=== PATIENT | female | born 1970 | race Hispanic/Latino ===

== ENCOUNTER 2017-08-15 19:22 | Emergency (ER) | payer MEDICAID | END 2017-08-15 20:03 | disposition home or self-care (01) | LOC: EDH 19:22 | DX: L02.211 Cutaneous abscess of abdominal wall (principal); E78.5 Hyperlipidemia, unspecified; I10 Essential (primary) hypertension; E11.9 Type 2 diabetes mellitus without complications; Z90.710 Acquired absence of both cervix and uterus; Z79.4 Long term (current) use of insulin; Z98.890 Other specified postprocedural states | CPT/HCPCS: 10060 ==

== ENCOUNTER → 2018-01-02 | Outpatient (CLI) | payer MEDICAID | END | disposition home or self-care (01) | LOC: SHCH 11:04 | PROVIDERS: ATTEND Internal Medicine Cardiovascular Disease | DX: R94.31 Abnormal electrocardiogram [ECG] [EKG] (principal); R06.09 Other forms of dyspnea; R60.9 Edema, unspecified | CPT/HCPCS: 93306 ==

== ENCOUNTER 2018-03-29 09:37 | Observation (INO) | payer MEDICAID ==
[~2018-03-29] VITALS: Ht 167.6 cm; Wt 89.1 kg
[2018-03-29] MEDS ORDERED: ASPIRIN 325 MG TABLET ONE (10:25)
[2018-03-29 10:35] LABS: APPEARANCE,URINE Clear (CLEAR); BILIRUBIN,URINE Negative (NEGATIVE); COLOR,URINE Yellow (YELLOW); GLUCOSE, URINE (UA) >=1000 mg/dL (NEGATIVE); KETONES,URINE Negative (NEGATIVE); LEUKOCYTE ESTERASE ,URINE Negative (NEGATIVE); NITRATE,URINE Negative (NEGATIVE); OCCULT BLOOD,URINE Nonhemolyzed Trace (NEGATIVE); PH,URINE 6.5 (5.0-8.0); PROTEIN,URINE POS 2+ (NEGATIVE); UROBILINOGEN,URINE 0.2 mg/dL (0.2-1.0)
[2018-03-29 10:36] LABS: BASOPHILS % (AUTO) 0.8 % (0.0-5.0); EOSINOPHILS % (AUTO) 1.6 % (0.0-8.0); HEMATOCRIT 45.9 % (36-48); LYMPHOCYTES % (AUTO) 30.1 % (21.0-51.0); MEAN CORPUSCULAR HEMOGLOBIN 28.8 pg (27.0-33.0); MEAN CORPUSCULAR HGB CONC 34.3 g/dL (32.0-36.0); MEAN CORPUSCULAR VOLUME 84.1 fL (79-99); MONOCYTES % (AUTO) 5.2 % (3.0-13.0); NEUTROPHILS % (AUTO) 62.3 % (40.0-77.0); NUCLEATED RED BLOOD CELLS 0.3 % (0.0-0.19); PLATELET COUNT (AUTO) 301 K/uL (130-400); RED BLOOD CELL COUNT(AUTO) 5.46 MIL/uL (4.00-5.50); RED CELL DISTRIBUTION WIDTH 12.7 % (11.0-15.5); WHITE BLOOD COUNT (AUTO) 5.6 K/uL (4.8-10.8)
[2018-03-29 10:42] LABS: HCG,QUAL RESULT NEGATIVE (NEGATIVE)
[2018-03-29 10:43] LABS: AMPHET/METH SCREEN,URINE NEGATIVE (NEGATIVE); BARBITURATE SCREEN, URINE NEGATIVE (NEGATIVE); BENZODIAZEPINES SCREEN,URINE NEGATIVE (NEGATIVE); CANNABINOID SCREEN,URINE NEGATIVE (NEGATIVE); COCAINE SCREEN,URINE NEGATIVE (NEGATIVE); OPIATE SCREEN,URINE NEGATIVE (NEGATIVE); PHENCYCLIDINE SCREEN,URINE NEGATIVE (NEGATIVE)
[2018-03-29 10:45] LABS: CREATININE 0.7 mg/dL (0.5-1.5); POTASSIUM 3.4 mmol/L (3.5-5.1)
[2018-03-29 10:49] LABS: INR 0.84 (0.85-1.15); PARTIAL THROMBOPLASTIN TIME 26.4 SEC (26.3-35.5); PROTHROMBIN TIME 8.9 SEC (9.6-11.6)
[2018-03-29 10:50] LABS: ALBUMIN 3.8 g/dL (3.5-5.0); BILIRUBIN,TOTAL 0.4 mg/dL (0.2-1.0); TOTAL PROTEIN, SERUM 8.4 g/dL (6.0-8.3)
[2018-03-29 10:54] LABS: BACTERIA,URINE None Seen /HPF (None Seen); RBC,URINE 0-1 /HPF (0-1); SQUAMOUS EPITHELIAL CELL,UR Rare /HPF (0-2); WBC,URINE None Seen /HPF (0-1)
[2018-03-29 11:10] LABS: B-TYPE NATRIURETIC PEPTIDE 35 pg/mL (0-100)
[2018-03-29] MEDS ORDERED: NITROGLYCERIN 0.4 MG SL TAB SL PRN (12:15)
[2018-03-29] MEDS ORDERED: ACETAMINOPHEN EXTRA STRENGTH 500 MG TABLET ONE (12:53)
[2018-03-29] MEDS ORDERED: NITROGLYCERIN 1GM/1 INCH PACKET TD ONE (12:53)
--- NOTE | 2018-03-29 15:00 | NUR ---
PT ARRIVAL UPDATE DR. DEL TORO NOTIFIED ABOUT Pt ARRIVAL AND PRESENTING SYMPTOMS AT THIS TIME, MD PENDING TO COME SEE Pt. NO NEW ORDERS.
[2018-03-29 16:00] VITALS: BP 167/81
[2018-03-29 16:18] LABS: CREATINE KINASE, TOTAL 57 U/L (21-232); MYOGLOBIN 25 ng/mL (10-92); TROPONIN I < 0.04 ng/mL (0.00-0.06)
[2018-03-29] MEDS: INSULIN R PO SS1 SQ SCH ×2 (19:16→22:04)
[2018-03-29] MEDS ORDERED: TRAMADOL /APAP 37.5MG/325MG TAB PO PRN (20:00)
[2018-03-29 21:12] VITALS: BP 180/85
[2018-03-29] MEDS ORDERED: AMLODIPINE BESYLATE 5 MG TAB PO ONE (21:57)
[2018-03-29] MEDS: AMLODIPINE BESYLATE 5 MG TAB PO SCH (22:00)
[2018-03-29 23:43] VITALS: BP 159/76
[2018-03-30] VITALS (9 sets, daily range): BP systolic 140–184; BP diastolic 72–99
[2018-03-30] MEDS: INSULIN R PO SS1 SQ SCH ×4 (06:15→20:29)
[2018-03-30] MEDS ORDERED: REGADENOSON 0.4 MG/5 ML PF SYG IVP SCH (08:30)
[2018-03-30] MEDS: METOPROLOL TARTRATE 25 MG TAB PO SCH ×2 (10:50→20:27)
[2018-03-30] MEDS: PANTOPRAZOLE SODIUM 40 MG TABLET.DR PO SCH (12:31)
[2018-03-30] MEDS: ASPIRIN 325 MG TABLET PO SCH (12:31)
[2018-03-30] MEDS ORDERED: ONDANSETRON HCL 4 MG/2 ML VIAL ONE (21:20)
[2018-03-30] MEDS: AMLODIPINE BESYLATE 5 MG TAB PO SCH (21:23)
[2018-03-31 03:50] VITALS: BP 144/74
[2018-03-31] MEDS: TRAMADOL /APAP 37.5MG/325MG TAB PO PRN ×2 (05:45→22:15)
[2018-03-31] MEDS: INSULIN R PO SS1 SQ SCH ×4 (06:26→22:09)
[2018-03-31 07:00] VITALS: BP 154/75
[2018-03-31] MEDS: AMLODIPINE BESYLATE 5 MG TAB PO SCH (08:13)
[2018-03-31] MEDS: METOPROLOL TARTRATE 25 MG TAB PO SCH ×2 (08:13→22:14)
[2018-03-31] MEDS: ASPIRIN 325 MG TABLET PO SCH (08:13)
[2018-03-31] MEDS: PANTOPRAZOLE SODIUM 40 MG TABLET.DR PO SCH (08:13)
[2018-03-31 11:00] VITALS: BP 162/85
[2018-03-31] MEDS: ONDANSETRON HCL MDV 20ML 2 MG/ML VIAL IVP PRN ×2 (14:51→22:15)
--- NOTE | 2018-03-31 15:33 | NUR ---
cm note pt resides with spouse, independent and active at home. no dme. dc plan is back to home. no dc needs. Addendum: 03/31/18 at 1534 by DELMI JACKSON CM Amended: Links added.
[2018-03-31 16:00] VITALS: BP 180/79
[2018-03-31] MEDS: CLONIDINE HCL 0.1 MG TABLET PO PRN (16:51)
[2018-03-31 20:00] VITALS: BP 168/82
[2018-04-01 00:06] VITALS: BP 144/74
[2018-04-01 04:00] VITALS: BP 132/71
[2018-04-01] MEDS: INSULIN R PO SS1 SQ SCH ×3 (06:31→17:28)
[2018-04-01 08:00] VITALS: BP 143/76
[2018-04-01] MEDS ORDERED: LISI-613 PO (10:01)
[2018-04-01] MEDS ORDERED: INSU100C6 SQ (10:05)
[2018-04-01] MEDS ORDERED: INSU100V12 SQ (10:05)
[2018-04-01] MEDS: PANTOPRAZOLE SODIUM 40 MG TABLET.DR PO SCH (10:18)
[2018-04-01] MEDS: ASPIRIN 325 MG TABLET PO SCH (10:18)
[2018-04-01] MEDS: METOPROLOL TARTRATE 25 MG TAB PO SCH (10:19)
[2018-04-01] MEDS: AMLODIPINE BESYLATE 5 MG TAB PO SCH (10:19)
[2018-04-01 11:00] VITALS: BP 149/74
[2018-04-01] MEDS: CLONIDINE HCL 0.1 MG TABLET PO PRN (13:49)
--- NOTE | 2018-04-01 13:49 | NUR ---
c/o headache asked to have bp checked. ua=918/75 hr=65. clonidine given as per prn orders. will continue to monitor.
[2018-04-01 16:00] VITALS: BP 150/75
--- NOTE | 2018-04-01 19:45 | NUR ---
CM NOTE cm spoke to Dr. Moss regarding pending discharge. CM reported last v/s recorded at 1600. Received orders for discharge. States new prescription in chart with additional bp meds. CM updated nursing.
[2018-04-01 20:00] VITALS: BP 148/77
--- NOTE | 2018-04-01 20:51 | NUR ---
Discharge note: Pt. fully awake and responsive. Reviewed discharge instruction to patient. Pt. verbalized understanding. IV site to LAC #20g terminated with cath intact. Held for 2-3 min. No swelling /bleeding or redness noted. Telemetry discontinued. Discharged via w/c with prescriptions and instructions. Left hospital with mother to home. No apparent distress or discomfort noted.
== END 2018-04-01 20:55 | disposition home or self-care (01) ==
LOC: EDH 09:37 → EDHIP 09:38 → 3CH 14:51
PROVIDERS: ADMIT Internal Medicine; ATTEND Internal Medicine
DX: R07.89 Other chest pain (principal); E11.65 Type 2 diabetes mellitus with hyperglycemia; E78.5 Hyperlipidemia, unspecified; I10 Essential (primary) hypertension; L03.039 Cellulitis of unspecified toe; Z79.82 Long term (current) use of aspirin; Z91.19 Patient's noncompliance with other medical treatment and regimen; Z91.14 Patient's other noncompliance with medication regimen; Z90.710 Acquired absence of both cervix and uterus; Z23 Encounter for immunization
CPT/HCPCS: 36415; 71045; 78452; 80053; 80305; 81001; 81025; 82550 ×2; 82948 ×15; 83874; 83880; 84484 ×2; 85025; 85610; 85730; 93005 ×2; 93017; 96372 ×4; 96374; 96376; 99284; A9500 ×2; G0008; G0378 ×83; J1815 ×7; J2405; J2785; Q2035

== ENCOUNTER 2019-01-02 16:14 | Emergency (ER) | payer MEDICAID ==
[~2019-01-02 16:14] MED LIST: INSU100C6 SQ; INSU100V12 SQ; LISI-613 PO
[2019-01-02 16:53] LABS: CREATININE 0.9 mg/dL (0.5-1.5); POTASSIUM 3.9 mmol/L (3.5-5.1)
[2019-01-02 17:04] LABS: BILIRUBIN,TOTAL 0.3 mg/dL (0.2-1.0); TOTAL PROTEIN, SERUM 7.5 g/dL (6.0-8.3)
[2019-01-02] MEDS ORDERED: ACETAMINOPHEN EXTRA STRENGTH 500 MG TABLET ONE (18:41)
[2019-01-02] MEDS ORDERED: ONDANSETRON ODT 4 MG TAB ONE (18:42)
[2019-01-02 18:48] LABS: BASOPHILS % (AUTO) 0.7 % (0.0-5.0); EOSINOPHILS % (AUTO) 1.8 % (0.0-8.0); HEMATOCRIT 31.5 % (36-48); LYMPHOCYTES % (AUTO) 9.6 % (21.0-51.0); MEAN CORPUSCULAR HEMOGLOBIN 30.1 pg (27.0-33.0); MEAN CORPUSCULAR HGB CONC 33.3 g/dL (32.0-36.0); MEAN CORPUSCULAR VOLUME 90.4 fL (79-99); MONOCYTES % (AUTO) 8.6 % (3.0-13.0); NEUTROPHILS % (AUTO) 79.3 % (40.0-77.0); NUCLEATED RED BLOOD CELLS 0.1 % (0.0-0.19); PLATELET COUNT (AUTO) 256 K/uL (130-400); RED BLOOD CELL COUNT(AUTO) 3.49 MIL/uL (4.00-5.50); RED CELL DISTRIBUTION WIDTH 15.7 % (11.0-15.5); WHITE BLOOD COUNT (AUTO) 8.9 K/uL (4.8-10.8)
[2019-01-02 19:43] LABS: APPEARANCE,URINE Clear (CLEAR); BILIRUBIN,URINE Negative (NEGATIVE); COLOR,URINE Yellow (YELLOW); GLUCOSE, URINE (UA) >=1000 mg/dL (NEGATIVE); KETONES,URINE Negative (NEGATIVE); LEUKOCYTE ESTERASE ,URINE Negative (NEGATIVE); NITRATE,URINE Negative (NEGATIVE); OCCULT BLOOD,URINE Trace (NEGATIVE); PH,URINE 5.5 (5.0-8.0); PROTEIN,URINE POS 2+ mg/dL (NEGATIVE); UROBILINOGEN,URINE 0.2 mg/dL (0.2-1.0)
[2019-01-02 19:50] LABS: BACTERIA,URINE Rare /HPF (None Seen); MUCUS,URINE Rare LPF (None Seen); RBC,URINE 0-1 /HPF (0-1); SQUAMOUS EPITHELIAL CELL,UR Few /HPF (0-2); WBC,URINE 0-1 /HPF (0-1)
[2019-01-02] MEDS ORDERED: LABETALOL HCL 5 MG/ML 20ML VIAL IV ONE (20:19)
[2019-01-02] MEDS ORDERED: SODIUM CHLORIDE 0.9% 1000ML 1,000 ML IV ONE (20:19)
[2019-01-02] MEDS ORDERED: IOHEXOL-350 75 ML VIAL IV ONE (20:25)
== END 2019-01-02 23:35 | disposition home or self-care (01) ==
LOC: EDH 16:14
DX: I10 Essential (primary) hypertension (principal); R06.00 Dyspnea, unspecified; R42 Dizziness and giddiness; R51 Headache; R07.9 Chest pain, unspecified; E11.9 Type 2 diabetes mellitus without complications; E78.5 Hyperlipidemia, unspecified; Z79.4 Long term (current) use of insulin; Z88.8 Allergy status to other drugs, medicaments and biological substances; Z90.710 Acquired absence of both cervix and uterus
CPT/HCPCS: 36415; 71046; 71275; 80053; 81001; 82550; 84484; 85025; 85378; 87804 ×2; 93005; 93970; 96361; 96374; 99285; J3490; J7030; Q9967

== ENCOUNTER 2020-11-04 10:55 | Inpatient (IN) | payer MEDICAID ==
[~2020-11-04] VITALS: Ht 167.6 cm; Wt 100.0 kg
[~2020-11-04 10:55] MED LIST changes: -LISI-613 PO; +LISI20TA24 PO
[2020-11-04 12:18] LABS: HEMATOCRIT 34.6 % (36-48); MEAN CORPUSCULAR HEMOGLOBIN 28.4 pg (27.0-33.0); MEAN CORPUSCULAR HGB CONC 32.4 g/dL (32.0-36.0); MEAN CORPUSCULAR VOLUME 87.8 fL (79-99); RED BLOOD CELL COUNT(AUTO) 3.94 MIL/uL (4.00-5.50); RED CELL DISTRIBUTION WIDTH 12.3 % (11.0-15.5); WHITE BLOOD COUNT (AUTO) 8.5 K/uL (4.8-10.8)
[2020-11-04] MEDS ORDERED: MORPHINE 2 MG SYG ONE (12:27)
[2020-11-04] MEDS ORDERED: ONDANSETRON 4MG INJ ONE ×2 (12:27→17:09)
[2020-11-04 12:37] VITALS: BP 165/80
[2020-11-04] MEDS ORDERED: AEC81 PO (12:54)
[2020-11-04] MEDS ORDERED: SITA100T12 PO (12:54)
[2020-11-04] MEDS ORDERED: CLON0.1T PO (12:54)
[2020-11-04] MEDS ORDERED: HYDR25TA PO (12:54)
[2020-11-04] MEDS ORDERED: SPIR50TA5 PO (12:54)
[2020-11-04] MEDS ORDERED: ATOR40TA69 PO (12:54)
[2020-11-04] MEDS ORDERED: LOSA100T58 PO (12:54)
[2020-11-04] MEDS ORDERED: ONDANSETRON 4MG INJ IVP ONE (13:00)
[2020-11-04] MEDS ORDERED: MORPHINE 2 MG SYG IVP ONE (13:00)
[2020-11-04 13:08] LABS: CREATININE 2.7 mg/dL (0.5-1.5)
[2020-11-04 13:42] LABS: POTASSIUM 6.7 mmol/L (3.5-5.1)
[2020-11-04] MEDS ORDERED: CALCIUM GLUC 1GM VIAL IV ONE (14:14)
[2020-11-04] MEDS ORDERED: DEXTROSE 50%-WATER 50 ML DISP.SYRIN IV ONE ×3 (14:15→21:30)
[2020-11-04] MEDS ORDERED: INSULIN HUMULIN R 100 UNIT/ML 3ML ONE (14:16)
[2020-11-04] MEDS ORDERED: INSULIN HUMULIN R 100 UNIT/ML 3ML IV ONE ×2 (14:30→21:30)
[2020-11-04] MEDS ORDERED: CALCIUM GLUC 1GM VIAL 1 GM in 0.9%NACL 100ML 100 ML IV SCH (14:30)
[2020-11-04] MEDS ORDERED: GLUCAGON 1MG KIT 1 MG ML IM PRN (14:30)
[2020-11-04] MEDS ORDERED: DEXTROSE 50%-WATER 50 ML DISP.SYRIN IV PRN (14:30)
[2020-11-04] MEDS ORDERED: METOPROLOL TARTRATE 1 MG/ML 5ML VIAL IV ONE (15:00)
[2020-11-04] MEDS ORDERED: KAYEXALATE 15GM/60ML PO ONE (15:00)
[2020-11-04 15:14] VITALS: BP 159/49
[2020-11-04] MEDS: 0.9%NACL 1000ML 1,000 ML IV SCH (15:58)
[2020-11-04] MEDS: HYDROMORPHONE 0.5 MG SYG (0.5MG/0.5ML) IVP PRN (15:59)
[2020-11-04] MEDS ORDERED: AMLODIPINE 5 MG TAB PO ONE (16:30)
[2020-11-04] MEDS: INSULIN HUMULIN R 100 UNIT/ML 3ML SQ SCH ×2 (16:30→21:00)
[2020-11-04 17:17] LABS: APPEARANCE,URINE Clear (CLEAR); BILIRUBIN,URINE Negative (NEGATIVE); COLOR,URINE Yellow (YELLOW); GLUCOSE, URINE (UA) 500 mg/dL (NEGATIVE); KETONES,URINE Negative (NEGATIVE); LEUKOCYTE ESTERASE ,URINE Negative (NEGATIVE); NITRATE,URINE Negative (NEGATIVE); OCCULT BLOOD,URINE Negative (NEGATIVE); PROTEIN,URINE Negative (NEGATIVE); UROBILINOGEN,URINE 0.2 mg/dL (0.2-1.0)
[2020-11-04 17:24] LABS: BACTERIA,URINE Rare /HPF (None Seen); RBC,URINE 0-1 /HPF (0-1); SQUAMOUS EPITHELIAL CELL,UR Few /HPF (0-2); WBC,URINE 0-1 /HPF (0-1)
[2020-11-04] MEDS: CEFTRIAXONE 1G VIAL IVP SCH (17:42)
[2020-11-04] MEDS ORDERED: ACETAMINOPHEN 325 MG TAB PO PRN (18:30)
[2020-11-04 18:56] LABS: HEMOGLOBIN A1C 9.5 % (4.0-6.0)
[2020-11-04] MEDS: FAMOTIDINE 20MG VIAL IV SCH (19:42)
[2020-11-04 20:16] VITALS: BP 144/54
[2020-11-04] MEDS ORDERED: IPRATROPIUM/ALBUTEROL SULFATE 3 ML SOLUTION IH ONE (21:30)
[2020-11-04] MEDS ORDERED: NA ZIRCON CYCLOSIL(LOKELMA 10GM) PO SCH (21:30)
[2020-11-04] MEDS ORDERED: SODIUM BICARB 50MEQ 50ML VIAL IV SCH (21:30)
[2020-11-05] VITALS (7 sets, daily range): BP systolic 106–196; BP diastolic 36–68
[2020-11-05] MEDS ORDERED: ASCO100031 PO (01:20)
[2020-11-05] MEDS ORDERED: MULT-1247 PO (01:20)
[2020-11-05] MEDS ORDERED: NPH,100V SQ (01:20)
[2020-11-05] MEDS ORDERED: FLUC150T6 PO (01:20)
[2020-11-05] MEDS ORDERED: VITAMIN D PO (01:20)
[2020-11-05] MEDS ORDERED: CINN1CAP2 PO (01:20)
[2020-11-05] MEDS: ACETAMINOPHEN 325 MG TAB PO PRN ×2 (01:32→09:18)
[2020-11-05 05:47] LABS: BASOPHILS % (AUTO) 0.4 % (0.0-5.0); EOSINOPHILS % (AUTO) 1.6 % (0.0-8.0); HEMATOCRIT 28.7 % (36-48); LYMPHOCYTES % (AUTO) 34.7 % (21.0-51.0); MEAN CORPUSCULAR HEMOGLOBIN 28.1 pg (27.0-33.0); MEAN CORPUSCULAR HGB CONC 32.4 g/dL (32.0-36.0); MEAN CORPUSCULAR VOLUME 86.7 fL (79-99); MONOCYTES % (AUTO) 5.9 % (3.0-13.0); NEUTROPHILS % (AUTO) 57.1 % (40.0-77.0); PLATELET COUNT (AUTO) 305 K/uL (130-400); RED BLOOD CELL COUNT(AUTO) 3.31 MIL/uL (4.00-5.50); RED CELL DISTRIBUTION WIDTH 12.5 % (11.0-15.5); WHITE BLOOD COUNT (AUTO) 7.6 K/uL (4.8-10.8)
[2020-11-05] MEDS: INSULIN HUMULIN R 100 UNIT/ML 3ML SQ SCH ×5 (06:03→20:24)
[2020-11-05 06:11] LABS: ALBUMIN 3.1 g/dL (3.5-5.0); BILIRUBIN,TOTAL 0.2 mg/dL (0.2-1.0); CREATININE 2.2 mg/dL (0.5-1.5); MAGNESIUM 2.5 mg/dL (1.80-2.40); PHOSPHORUS 4.2 mg/dL (2.5-4.9); TOTAL PROTEIN, SERUM 7.3 g/dL (6.0-8.3); URIC ACID 5.9 mg/dL (2.6-7.2)
[2020-11-05 06:14] LABS: POTASSIUM 6.8 mmol/L (3.5-5.1)
[2020-11-05] MEDS ORDERED: INSULIN HUMULIN R 100 UNIT/ML 3ML IV SCH (08:30)
[2020-11-05] MEDS ORDERED: DEXTROSE 50%-WATER 50 ML DISP.SYRIN IV SCH (08:30)
[2020-11-05] MEDS ORDERED: PHARMACY COMMUNICATION MISC SCH (08:30)
[2020-11-05] MEDS ORDERED: SODIUM BICARB 50MEQ 50ML VIAL IV SCH (08:30)
[2020-11-05] MEDS ORDERED: CALCIUM GLUC 1GM VIAL IV SCH (09:00)
[2020-11-05] MEDS ORDERED: NA ZIRCON CYCLOSIL(LOKELMA 10GM) PO NR (09:00)
[2020-11-05] MEDS ORDERED: LOSARTAN 100 MG TABLET PO SCH (09:00)
[2020-11-05] MEDS ORDERED: CALCIUM GLUC 1GM VIAL 1 GM in 0.9%NACL 100ML 100 ML IV SCH (09:00)
[2020-11-05] MEDS: FAMOTIDINE 20MG VIAL IV SCH (09:15)
[2020-11-05] MEDS: ATORVASTATIN 40 MG TABLET PO SCH (09:16)
[2020-11-05] MEDS: AMLODIPINE 5 MG TAB PO SCH (09:17)
[2020-11-05] MEDS: Vitamin B Complex/Vit C/Folic Acid PO SCH (09:21)
[2020-11-05] MEDS: ASPIRIN 81 MG EC TAB PO SCH (09:21)
[2020-11-05] MEDS ORDERED: ONDANSETRON 4MG INJ IVP PRN (10:00)
[2020-11-05] MEDS: 0.9%NACL 1000ML 1,000 ML IV SCH (10:52)
[2020-11-05] MEDS ORDERED: INSU500I SQ (13:09)
[2020-11-05] MEDS: CEFTRIAXONE 1G VIAL IVP SCH (17:03)
[2020-11-05] MEDS: HYDROMORPHONE 0.5 MG SYG (0.5MG/0.5ML) IVP PRN (17:03)
[2020-11-05] MEDS: INSULIN GLARGINE 100 UNITS/ML 10 ML VIAL SQ SCH (17:20)
[2020-11-05] MEDS ORDERED: NA ZIRCON CYCLOSIL(LOKELMA 10GM) PO SCH (17:30)
[2020-11-05] MEDS: CLONIDINE HCL 0.1 MG TABLET PO SCH (17:34)
[2020-11-06] MEDS ORDERED: HYDRALAZINE 20MG/ML VIAL IV SCH ×2 (00:05→00:30)
[2020-11-06] MEDS ORDERED: HYDRALAZINE 20MG/ML VIAL ONE (00:11)
[2020-11-06] MEDS: ACETAMINOPHEN 325 MG TAB PO PRN (00:16)
[2020-11-06 03:24] VITALS: BP 148/54
[2020-11-06 04:32] LABS: HEMATOCRIT 28.8 % (36-48); MEAN CORPUSCULAR HEMOGLOBIN 28.3 pg (27.0-33.0); MEAN CORPUSCULAR VOLUME 85.7 fL (79-99); PLATELET COUNT (AUTO) 277 K/uL (130-400); RED BLOOD CELL COUNT(AUTO) 3.36 MIL/uL (4.00-5.50); RED CELL DISTRIBUTION WIDTH 12.3 % (11.0-15.5); WHITE BLOOD COUNT (AUTO) 8.3 K/uL (4.8-10.8)
[2020-11-06 04:49] LABS: ALBUMIN 3.1 g/dL (3.5-5.0); BILIRUBIN,TOTAL 0.2 mg/dL (0.2-1.0); CREATININE 1.6 mg/dL (0.5-1.5); POTASSIUM 4.9 mmol/L (3.5-5.1); TOTAL PROTEIN, SERUM 7.2 g/dL (6.0-8.3)
[2020-11-06 05:26] LABS: BASOPHILS % (MANUAL) 1 % (0-2); EOSINOPHILS % (MANUAL) 3 % (1-6); LYMPHOCYTES % (MANUAL) 24 % (22-44); MAN.DIFF COMMENT-IMPRESSION MANUAL DIFFERENTIAL; MONOCYTES % (MANUAL) 4 % (2-9); SEGMENTED NEUTROPHILS % 68 % (40-70)
[2020-11-06] MEDS: INSULIN HUMULIN R 100 UNIT/ML 3ML SQ SCH ×7 (06:22→20:00)
[2020-11-06] MEDS: 0.9%NACL 1000ML 1,000 ML IV SCH (06:46)
[2020-11-06 08:00] VITALS: BP 150/79
[2020-11-06] MEDS: ATORVASTATIN 40 MG TABLET PO SCH (10:51)
[2020-11-06] MEDS: Vitamin B Complex/Vit C/Folic Acid PO SCH (10:51)
[2020-11-06] MEDS: FAMOTIDINE 20MG VIAL IV SCH (10:51)
[2020-11-06] MEDS: AMLODIPINE 5 MG TAB PO SCH (10:51)
[2020-11-06] MEDS: ASPIRIN 81 MG EC TAB PO SCH (10:51)
[2020-11-06 12:00] VITALS: BP 158/69
[2020-11-06 16:00] VITALS: BP 176/69
[2020-11-06] MEDS ORDERED: PRASUGREL HCL 10 MG TABLET PO SCH (16:30)
[2020-11-06] MEDS: CEFTRIAXONE 1G VIAL IVP SCH (16:38)
[2020-11-06] MEDS: INSULIN GLARGINE 100 UNITS/ML 10 ML VIAL SQ SCH (16:55)
[2020-11-06] MEDS: CLONIDINE HCL 0.1 MG TABLET PO SCH (19:47)
[2020-11-06 19:57] VITALS: BP 181/78
[2020-11-06 23:32] VITALS: BP 132/61
[2020-11-07] VITALS (14 sets, daily range): BP systolic 105–169; BP diastolic 43–81
[2020-11-07] MEDS: 0.9%NACL 1000ML 1,000 ML IV SCH ×2 (02:50→15:15)
[2020-11-07 04:01] LABS: HEMATOCRIT 29.9 % (36-48); MEAN CORPUSCULAR HEMOGLOBIN 28.3 pg (27.0-33.0); MEAN CORPUSCULAR HGB CONC 32.8 g/dL (32.0-36.0); MEAN CORPUSCULAR VOLUME 86.4 fL (79-99); PLATELET COUNT (AUTO) 286 K/uL (130-400); RED BLOOD CELL COUNT(AUTO) 3.46 MIL/uL (4.00-5.50); RED CELL DISTRIBUTION WIDTH 12.3 % (11.0-15.5); WHITE BLOOD COUNT (AUTO) 6.9 K/uL (4.8-10.8)
[2020-11-07 04:17] LABS: BILIRUBIN,TOTAL 0.2 mg/dL (0.2-1.0); CREATININE 1.4 mg/dL (0.5-1.5); POTASSIUM 4.9 mmol/L (3.5-5.1); TOTAL PROTEIN, SERUM 7.1 g/dL (6.0-8.3)
[2020-11-07 05:18] LABS: BASOPHILS % (MANUAL) 1 % (0-2); EOSINOPHILS % (MANUAL) 3 % (1-6); LYMPHOCYTES % (MANUAL) 38 % (22-44); MONOCYTES % (MANUAL) 6 % (2-9); SEGMENTED NEUTROPHILS % 52 % (40-70)
[2020-11-07 05:19] LABS: MAN.DIFF COMMENT-IMPRESSION MANUAL DIFFERENTIAL
[2020-11-07 05:20] LABS: PLATELET MORPHOLOGY COMMENT ADEQUATE
[2020-11-07] MEDS: INSULIN HUMULIN R 100 UNIT/ML 3ML SQ SCH ×7 (05:42→20:15)
[2020-11-07] MEDS: ASPIRIN 81 MG EC TAB PO SCH (07:02)
[2020-11-07] MEDS: ATORVASTATIN 40 MG TABLET PO SCH (07:02)
[2020-11-07] MEDS: PRASUGREL HCL 10 MG TABLET PO SCH (07:02)
[2020-11-07] MEDS: Vitamin B Complex/Vit C/Folic Acid PO SCH (07:02)
[2020-11-07 07:53] LABS: INR 0.99 (0.85-1.15); PROTHROMBIN TIME 10.8 SEC (9.6-11.6)
[2020-11-07 07:55] LABS: PARTIAL THROMBOPLASTIN TIME 25.9 SEC (26.3-35.5)
[2020-11-07] MEDS: FAMOTIDINE 20MG VIAL IV SCH (08:17)
[2020-11-07] MEDS: AMLODIPINE 5 MG TAB PO SCH (08:17)
[2020-11-07] MEDS ORDERED: NITROGLYCERIN 2 MG VIAL IV ONE (11:07)
[2020-11-07] MEDS ORDERED: HEPARIN 10,000 UNIT/10ML (1,000 UNIT/ML) VIAL ONE (11:07)
[2020-11-07] MEDS ORDERED: FENTANYL CITRATE PF 50 MCG/1 ML 2ML VIAL ONE (11:08)
[2020-11-07] MEDS ORDERED: LIDOCAINE HCL 400MG/20ML VIAL ONE (11:08)
[2020-11-07] MEDS ORDERED: MIDAZOLAM HCL 1 MG/ML 2ML VIAL ONE (11:08)
[2020-11-07] MEDS ORDERED: IODIXANOL 320 MG/ML 100 ML VIAL ONE (11:08)
[2020-11-07] MEDS ORDERED: 0.9%NACL 1000ML 1,000 ML IV SCH (14:00)
[2020-11-07] MEDS: ACETAMINOPHEN 325 MG TAB PO PRN ×2 (14:33→20:12)
[2020-11-07] MEDS: CEFTRIAXONE 1G VIAL IVP SCH (16:18)
[2020-11-07] MEDS: INSULIN GLARGINE 100 UNITS/ML 10 ML VIAL SQ SCH (16:21)
[2020-11-08 04:08] VITALS: BP 144/63
[2020-11-08 04:17] LABS: HEMATOCRIT 28.5 % (36-48); MEAN CORPUSCULAR HEMOGLOBIN 28.6 pg (27.0-33.0); MEAN CORPUSCULAR VOLUME 86.6 fL (79-99); RED BLOOD CELL COUNT(AUTO) 3.29 MIL/uL (4.00-5.50); WHITE BLOOD COUNT (AUTO) 7.1 K/uL (4.8-10.8)
[2020-11-08 04:54] LABS: CREATININE 1.1 mg/dL (0.5-1.5); POTASSIUM 4.5 mmol/L (3.5-5.1)
[2020-11-08] MEDS: PRASUGREL HCL 10 MG TABLET PO SCH (07:26)
[2020-11-08] MEDS: ATORVASTATIN 40 MG TABLET PO SCH (07:27)
[2020-11-08] MEDS: AMLODIPINE 5 MG TAB PO SCH (07:27)
[2020-11-08] MEDS: Vitamin B Complex/Vit C/Folic Acid PO SCH (07:27)
[2020-11-08] MEDS: ASPIRIN 81 MG EC TAB PO SCH (07:27)
[2020-11-08] MEDS: FAMOTIDINE 20MG VIAL IV SCH (07:28)
[2020-11-08] MEDS: INSULIN HUMULIN R 100 UNIT/ML 3ML SQ SCH ×6 (07:30→18:15)
[2020-11-08 07:50] VITALS: BP 132/67
[2020-11-08] MEDS: ACETAMINOPHEN 325 MG TAB PO PRN (08:10)
[2020-11-08] MEDS ORDERED: PRAS10TA6 PO (08:53)
[2020-11-08 11:27] VITALS: BP 154/77
[2020-11-08] MEDS ORDERED: CEPH500B PO (14:52)
[2020-11-08] MEDS ORDERED: LOSA25TA41 PO (14:52)
[2020-11-08 16:00] VITALS: BP 154/61
[2020-11-08] MEDS: CEFTRIAXONE 1G VIAL IVP SCH (17:30)
[2020-11-08] MEDS: INSULIN GLARGINE 100 UNITS/ML 10 ML VIAL SQ SCH (18:17)
== END 2020-11-08 19:25 | disposition home or self-care (01) | DRG 181 ==
LOC: EDH 10:55 → EDHIP 10:56 → 4DH 11-05 00:45
PROVIDERS: ADMIT Internal Medicine; ATTEND Internal Medicine
PROC: 047 Lower Arteries, Dilation (ICD-10-PCS; principal; 2020-11-07)
DX: E11.51 Type 2 diabetes mellitus with diabetic peripheral angiopathy without gangrene (principal); N17.0 Acute kidney failure with tubular necrosis; E11.22 Type 2 diabetes mellitus with diabetic chronic kidney disease; E11.621 Type 2 diabetes mellitus with foot ulcer; I12.9 Hypertensive chronic kidney disease with stage 1 through stage 4 chronic kidney disease, or unspecified chronic kidney disease; E11.319 Type 2 diabetes mellitus with unspecified diabetic retinopathy without macular edema; E87.5 Hyperkalemia; E87.2 Acidosis; L97.819 Non-pressure chronic ulcer of other part of right lower leg with unspecified severity; E87.1 Hypo-osmolality and hyponatremia; N18.9 Chronic kidney disease, unspecified; D64.9 Anemia, unspecified; M19.90 Unspecified osteoarthritis, unspecified site; E66.01 Morbid (severe) obesity due to excess calories; Z68.35 Body mass index [BMI] 35.0-35.9, adult; E78.00 Pure hypercholesterolemia, unspecified; E78.5 Hyperlipidemia, unspecified; L08.9 Local infection of the skin and subcutaneous tissue, unspecified; L97.519 Non-pressure chronic ulcer of other part of right foot with unspecified severity; Z79.4 Long term (current) use of insulin; Z79.899 Other long term (current) drug therapy; Z90.49 Acquired absence of other specified parts of digestive tract; Z98.891 History of uterine scar from previous surgery; Z90.710 Acquired absence of both cervix and uterus; Z82.49 Family history of ischemic heart disease and other diseases of the circulatory system; I99.8 Other disorder of circulatory system
CPT/HCPCS: 36415; 37230; 73600; 73620; 75710; 76770; 80048; 80053; 80061; 81001; 82550; 82948; 83036; 83735; 83874; 84100; 84132; 84145; 84484; 84550; 85025; 85027; 85610; 85730; 93005; 93926; 94640; 94664; 99156; 99157; C1760; C1769; C1893; C1894; G0378; J0360; J0610; J0696; J1170; J1644; J1815; J2250; J2405; J3010; J3490; J7030; J7070; Q9967

== ENCOUNTER → 2020-11-15 | Outpatient (CLI) | payer MEDICAID ==
[~2020-11-15] MED LIST changes: +AEC81 PO; +ASCO100031 PO; +ATOR40TA69 PO; +CEPH500B PO; +CINN1CAP2 PO; +CLON0.1T PO; +FLUC150T6 PO; -INSU100C6 SQ; -INSU100V12 SQ; +LIDOCAINE HCL 4% LTA SOL 4 ML VIAL TP ONE; -LISI20TA24 PO; +LOSA25TA41 PO; +MULT-1247 PO; +PRAS10TA6 PO; +SITA100T12 PO; +VITAMIN D PO
== END | disposition home or self-care (01) ==
LOC: WHH 10:11
PROVIDERS: ATTEND Family Medicine
DX: S81.801A Unspecified open wound, right lower leg, initial encounter (principal); E11.628 Type 2 diabetes mellitus with other skin complications; I70.203 Unspecified atherosclerosis of native arteries of extremities, bilateral legs; E11.51 Type 2 diabetes mellitus with diabetic peripheral angiopathy without gangrene; E11.22 Type 2 diabetes mellitus with diabetic chronic kidney disease; I12.9 Hypertensive chronic kidney disease with stage 1 through stage 4 chronic kidney disease, or unspecified chronic kidney disease; N18.9 Chronic kidney disease, unspecified; M19.90 Unspecified osteoarthritis, unspecified site; E66.01 Morbid (severe) obesity due to excess calories; E78.5 Hyperlipidemia, unspecified; E78.00 Pure hypercholesterolemia, unspecified; Z68.35 Body mass index [BMI] 35.0-35.9, adult; Z87.891 Personal history of nicotine dependence; Z79.4 Long term (current) use of insulin; Z79.899 Other long term (current) drug therapy; X58.XXXA Exposure to other specified factors, initial encounter; Y93.89 Activity, other specified; Y92.89 Other specified places as the place of occurrence of the external cause; Y99.8 Other external cause status
CPT/HCPCS: 11042; 99215; A4450

== ENCOUNTER → 2020-11-22 | Outpatient (CLI) | payer MEDICAID | END | disposition home or self-care (01) | LOC: WHH 09:57 | PROVIDERS: ATTEND Family Medicine | DX: S81.801D Unspecified open wound, right lower leg, subsequent encounter (principal); E11.628 Type 2 diabetes mellitus with other skin complications; I70.203 Unspecified atherosclerosis of native arteries of extremities, bilateral legs; E11.51 Type 2 diabetes mellitus with diabetic peripheral angiopathy without gangrene; E11.22 Type 2 diabetes mellitus with diabetic chronic kidney disease; I12.9 Hypertensive chronic kidney disease with stage 1 through stage 4 chronic kidney disease, or unspecified chronic kidney disease; N18.9 Chronic kidney disease, unspecified; M19.90 Unspecified osteoarthritis, unspecified site; E66.01 Morbid (severe) obesity due to excess calories; E78.5 Hyperlipidemia, unspecified; E78.00 Pure hypercholesterolemia, unspecified; Z68.35 Body mass index [BMI] 35.0-35.9, adult; Z87.891 Personal history of nicotine dependence; Z79.4 Long term (current) use of insulin; Z79.899 Other long term (current) drug therapy; X58.XXXD Exposure to other specified factors, subsequent encounter | CPT/HCPCS: 11042 ==

== ENCOUNTER → 2020-12-05 | Outpatient (CLI) | payer MEDICAID ==
[~2020-12-05] MED LIST changes: +HONEY 1 APPL/ML TUBE TP ONE
== END | disposition home or self-care (01) ==
LOC: WHH 09:04
PROVIDERS: ATTEND Family Medicine
DX: T81.89XD Other complications of procedures, not elsewhere classified, subsequent encounter (principal); S81.801D Unspecified open wound, right lower leg, subsequent encounter; E11.628 Type 2 diabetes mellitus with other skin complications; E11.622 Type 2 diabetes mellitus with other skin ulcer; L97.212 Non-pressure chronic ulcer of right calf with fat layer exposed; I70.232 Atherosclerosis of native arteries of right leg with ulceration of calf; I70.202 Unspecified atherosclerosis of native arteries of extremities, left leg; E11.51 Type 2 diabetes mellitus with diabetic peripheral angiopathy without gangrene; E11.40 Type 2 diabetes mellitus with diabetic neuropathy, unspecified; E11.22 Type 2 diabetes mellitus with diabetic chronic kidney disease; I12.9 Hypertensive chronic kidney disease with stage 1 through stage 4 chronic kidney disease, or unspecified chronic kidney disease; N18.9 Chronic kidney disease, unspecified; E11.319 Type 2 diabetes mellitus with unspecified diabetic retinopathy without macular edema; M19.90 Unspecified osteoarthritis, unspecified site; E78.00 Pure hypercholesterolemia, unspecified; E66.01 Morbid (severe) obesity due to excess calories; E78.5 Hyperlipidemia, unspecified; E80.0 Hereditary erythropoietic porphyria; Z68.35 Body mass index [BMI] 35.0-35.9, adult; Z90.49 Acquired absence of other specified parts of digestive tract; Z87.891 Personal history of nicotine dependence; Z79.4 Long term (current) use of insulin; Z79.899 Other long term (current) drug therapy; X58.XXXD Exposure to other specified factors, subsequent encounter; Y83.8 Other surgical procedures as the cause of abnormal reaction of the patient, or of later complication, without mention of misadventure at the time of the procedure
CPT/HCPCS: 11042; A4450

== ENCOUNTER → 2021-01-10 | Outpatient (CLI) | payer MEDICAID ==
[~2021-01-10] MED LIST changes: -LIDOCAINE HCL 4% LTA SOL 4 ML VIAL TP ONE
== END | disposition home or self-care (01) ==
LOC: WHH 09:13
PROVIDERS: ATTEND Family Medicine
DX: T81.89XD Other complications of procedures, not elsewhere classified, subsequent encounter (principal); E11.622 Type 2 diabetes mellitus with other skin ulcer; I70.238 Atherosclerosis of native arteries of right leg with ulceration of other part of lower leg; L97.812 Non-pressure chronic ulcer of other part of right lower leg with fat layer exposed; I70.232 Atherosclerosis of native arteries of right leg with ulceration of calf; L97.212 Non-pressure chronic ulcer of right calf with fat layer exposed; S81.801D Unspecified open wound, right lower leg, subsequent encounter; I70.202 Unspecified atherosclerosis of native arteries of extremities, left leg; E11.51 Type 2 diabetes mellitus with diabetic peripheral angiopathy without gangrene; E11.40 Type 2 diabetes mellitus with diabetic neuropathy, unspecified; E11.22 Type 2 diabetes mellitus with diabetic chronic kidney disease; I12.9 Hypertensive chronic kidney disease with stage 1 through stage 4 chronic kidney disease, or unspecified chronic kidney disease; N18.9 Chronic kidney disease, unspecified; E11.319 Type 2 diabetes mellitus with unspecified diabetic retinopathy without macular edema; E78.00 Pure hypercholesterolemia, unspecified; E66.01 Morbid (severe) obesity due to excess calories; M19.90 Unspecified osteoarthritis, unspecified site; E78.5 Hyperlipidemia, unspecified; Z68.35 Body mass index [BMI] 35.0-35.9, adult; Z90.49 Acquired absence of other specified parts of digestive tract; Z87.891 Personal history of nicotine dependence; Z79.4 Long term (current) use of insulin; Z79.899 Other long term (current) drug therapy; X58.XXXD Exposure to other specified factors, subsequent encounter; Y83.8 Other surgical procedures as the cause of abnormal reaction of the patient, or of later complication, without mention of misadventure at the time of the procedure
CPT/HCPCS: 11042; A4450

== ENCOUNTER → 2021-02-06 | Outpatient (CLI) | payer MEDICAID ==
[~2021-02-06] MED LIST changes: -HONEY 1 APPL/ML TUBE TP ONE; +LIDOCAINE HCL 4% LTA SOL 4 ML VIAL TP ONE
== END | disposition home or self-care (01) ==
LOC: WHH 13:24
PROVIDERS: ATTEND Family Medicine
DX: T81.89XD Other complications of procedures, not elsewhere classified, subsequent encounter (principal); E11.622 Type 2 diabetes mellitus with other skin ulcer; I70.238 Atherosclerosis of native arteries of right leg with ulceration of other part of lower leg; L97.812 Non-pressure chronic ulcer of other part of right lower leg with fat layer exposed; I70.232 Atherosclerosis of native arteries of right leg with ulceration of calf; L97.212 Non-pressure chronic ulcer of right calf with fat layer exposed; S81.801D Unspecified open wound, right lower leg, subsequent encounter; I70.202 Unspecified atherosclerosis of native arteries of extremities, left leg; E11.51 Type 2 diabetes mellitus with diabetic peripheral angiopathy without gangrene; E11.40 Type 2 diabetes mellitus with diabetic neuropathy, unspecified; E11.22 Type 2 diabetes mellitus with diabetic chronic kidney disease; I12.9 Hypertensive chronic kidney disease with stage 1 through stage 4 chronic kidney disease, or unspecified chronic kidney disease; N18.9 Chronic kidney disease, unspecified; E11.319 Type 2 diabetes mellitus with unspecified diabetic retinopathy without macular edema; E78.00 Pure hypercholesterolemia, unspecified; E66.01 Morbid (severe) obesity due to excess calories; M19.90 Unspecified osteoarthritis, unspecified site; E78.5 Hyperlipidemia, unspecified; Z68.35 Body mass index [BMI] 35.0-35.9, adult; Z90.49 Acquired absence of other specified parts of digestive tract; Z87.891 Personal history of nicotine dependence; Z79.4 Long term (current) use of insulin; Z79.899 Other long term (current) drug therapy; X58.XXXD Exposure to other specified factors, subsequent encounter; Y83.8 Other surgical procedures as the cause of abnormal reaction of the patient, or of later complication, without mention of misadventure at the time of the procedure
CPT/HCPCS: 11042; A6022

== ENCOUNTER 2022-04-14 15:02 | Emergency (ER) | payer MEDICAID ==
[~2022-04-14] VITALS: Ht 167.6 cm; Wt 98.9 kg
[~2022-04-14 15:02] MED LIST changes: +FLUC150T48 PO; -FLUC150T6 PO; -LIDOCAINE HCL 4% LTA SOL 4 ML VIAL TP ONE
[2022-04-14 15:49] LABS: BASOPHILS % (AUTO) 0.4 % (0.0-5.0); HEMATOCRIT 35.8 % (36-48); LYMPHOCYTES % (AUTO) 29.7 % (21.0-51.0); MEAN CORPUSCULAR HEMOGLOBIN 28.3 pg (27.0-33.0); MEAN CORPUSCULAR HGB CONC 33.8 g/dL (32.0-36.0); MEAN CORPUSCULAR VOLUME 83.6 fL (79-99); MONOCYTES % (AUTO) 4.6 % (3.0-13.0); NEUTROPHILS % (AUTO) 62.8 % (40.0-77.0); PLATELET COUNT (AUTO) 249 K/uL (130-400); RED BLOOD CELL COUNT(AUTO) 4.28 MIL/uL (4.00-5.50); RED CELL DISTRIBUTION WIDTH 12.5 % (11.0-15.5); WHITE BLOOD COUNT (AUTO) 8.6 K/uL (4.8-10.8)
[2022-04-14 16:03] LABS: INR 0.94 (0.85-1.15); PROTHROMBIN TIME 10.3 SEC (9.6-11.6)
[2022-04-14 16:04] LABS: PARTIAL THROMBOPLASTIN TIME 27.6 SEC (26.3-35.5)
[2022-04-14 16:07] LABS: POTASSIUM 4.1 mmol/L (3.5-5.1)
[2022-04-14 16:12] LABS: TOTAL PROTEIN, SERUM 7.4 g/dL (6.0-8.3)
[2022-04-14 16:36] LABS: CREATINE KINASE, TOTAL 80 U/L (21-232); LDL DIRECT 190 mg/dL (0-99)
[2022-04-14 18:29] LABS: APPEARANCE,URINE CLEAR (CLEAR); BILIRUBIN,URINE NEGATIVE (NEGATIVE); COLOR,URINE COLORLESS (YELLOW); GLUCOSE, URINE (UA) >=1000 mg/dL (NEGATIVE); KETONES,URINE NEGATIVE (NEGATIVE); LEUKOCYTE ESTERASE ,URINE NEGATIVE Leu/uL (NEGATIVE); NITRATE,URINE NEGATIVE (NEGATIVE); OCCULT BLOOD,URINE NEGATIVE (NEGATIVE); PH,URINE 5.5 (5.0-8.0); PROTEIN,URINE 30 mg/dL (NEGATIVE); UROBILINOGEN,URINE 0.2 mg/dL (0.2-1.0)
[2022-04-14 18:33] LABS: SQUAMOUS EPITHELIAL CELL,UR FEW /HPF (0-2); YEAST,URINE BUDDING FEW /HPF (None Seen)
[2022-04-14] MEDS ORDERED: LABETALOL 20MG SYG IV ONE (18:49)
[2022-04-14] MEDS ORDERED: LABETALOL 20MG VIAL IV ONE (19:00)
[2022-04-14] MEDS ORDERED: NITROGLYCERIN 30 GM TUBE TD ONE (19:30)
[2022-04-14] MEDS ORDERED: NITROGLYCERIN 1GM OINT 1 INCH/1GM TD ONE (19:33)
[2022-04-14 20:28] VITALS: BP 162/63
[2022-04-14] MEDS ORDERED: ACETAMINOPHEN 325 MG TAB PO ONE (20:30)
== END 2022-04-14 22:27 | disposition short-term general hospital (02) ==
LOC: EDH 15:02
DX: I63.9 Cerebral infarction, unspecified (principal); Z20.822 Contact with and (suspected) exposure to COVID-19; I10 Essential (primary) hypertension; E78.00 Pure hypercholesterolemia, unspecified; E11.9 Type 2 diabetes mellitus without complications; M19.90 Unspecified osteoarthritis, unspecified site; Z79.899 Other long term (current) drug therapy
CPT/HCPCS: 99285; 96374; 70450; 71045; 87635; 82550; 83721; 84484; 80053; 83880; 85025; 85610; 85730; 82948; 81001; 36415; 93005; C9803

== ENCOUNTER 2022-09-03 15:11 | Emergency (ER) | payer MEDICAID ==
[~2022-09-03] VITALS: Ht 167.6 cm; Wt 104.3 kg
[~2022-09-03 15:11] MED LIST changes: +LIDOCAINE 2%-EPI 1:200,000 20 ML VIAL IJ ONE
[2022-09-03 15:14] VITALS: BP 131/59
== END 2022-09-03 18:53 | disposition left against medical advice (07) ==
LOC: EDH 15:11
DX: R07.89 Other chest pain (principal); Z53.21 Procedure and treatment not carried out due to patient leaving prior to being seen by health care provider
CPT/HCPCS: 71045; 93005; 99281